=== PATIENT | female | born 1960 | race Caucasian/White ===

== ENCOUNTER → 2018-12-28 08:37 | Outpatient (CLI) | payer OTHER | END | disposition home or self-care (01) | LOC: D.HCCARDIO 08:37 | PROVIDERS: ATTEND Internal Medicine Interventional Cardiology | DX: R07.9 Chest pain, unspecified (principal) ==

== ENCOUNTER → 2019-01-11 08:09 | Outpatient (CLI) | payer OTHER | END | disposition home or self-care (01) | LOC: D.US 08:00 | PROVIDERS: ATTEND Internal Medicine Interventional Cardiology | DX: R01.1 Cardiac murmur, unspecified (principal) ==